=== PATIENT | female | born 1950 | race Caucasian/White ===

== ENCOUNTER 2019-07-29 11:03 | Emergency (ER) | payer MEDICARE, OTHER ==
[2019-07-29] MEDS ORDERED: IPRATROPIUM/ALBUTEROL 3 ML NEB INH STA (12:44)
[2019-07-29] MEDS ORDERED: DEXAMETHASONE 10 MG/ML VIAL PO STA (12:44)
[2019-07-29] MEDS ORDERED: CHERRY SYRUP 10 ML UDC PO ONE (12:44)
--- NOTE | 2019-07-29 12:49 | ED Physician Documentation ---
PD HPI DYSPNEA - Stated complaint Stated Complaint: SOA/COUGH - Chief complaint Chief Complaint: Resp - History obtained from History obtained from: Patient, Friend - History of Present Illness Timing - onset: How many weeks ago (2) Timing - onset during: Rest Timing - duration: Weeks (2) Timing - details: Gradual onset Pain level max: 0 Pain level now: 0 Inciting event(s): URI Improved by: Inhaler/neb Worsened by: Exertion, Coughing Associated symptoms: Wheezing. No: Fever, Cough, Hemoptysis, Chest pain / discomfort, Palpitations, Diaphoresis, Bilateral edema, Unilateral edema, Anxiety Similar symptoms before: Diagnosis (asthma, URI) Recently seen: Not recently seen Review of Systems Ten Systems: 10 systems reviewed and negative Constitutional: denies: Fever, Chills Ears: denies: Ear pain Nose: reports: Rhinorrhea / runny nose, Congestion Throat: denies: Sore throat Cardiac: denies: Chest pain / pressure Respiratory: reports: Cough, Wheezing. denies: Dyspnea, Hemoptysis GI: denies: Abdominal Pain, Nausea, Vomiting, Diarrhea Skin: denies: Rash Musculoskeletal: denies: Neck pain, Back pain Neurologic: denies: Headache PD PAST MEDICAL HISTORY - Past Medical History Past Medical History: Yes Cardiovascular: High cholesterol Respiratory: Asthma Psych: Depression - Past Surgical History HEENT: Cataracts - Present Medications Home Medications: Ambulatory Orders Medication Instructions Recorded Confirmed Albuterol Sulf [Ventolin Hfa 1 - 2 puffs INH Q4HR PRN #1 inhaler 07/29/19 Inhaler] Benzonatate [Tessalon Perle] 100 - 200 mg PO TID PRN #30 capsule 07/29/19 Cephalexin [Keflex] 500 mg PO TID 07/29/19 07/29/19 Escitalopram Oxalate [Lexapro] 20 mg PO DAILY 07/29/19 07/29/19 Guaifen/Dextromethorphan/PE 180 ml PO PRN PRN 07/29/19 07/29/19 [Mucinex Fast-Max Congest-Cough] Lorazepam [Ativan] 1 mg PO DAILY PM 07/29/19 07/29/19 Meclizine HCl [Travel-Ease] 25 mg PO PRN PRN 07/29/19 07/29/19 Vit A/Vit C/Vit E/Zinc/Copper 1 each PO DAILY 07/29/19 07/29/19 [Preservision Areds Softgel] predniSONE [Deltasone] 10 mg PO [id number] #42 tab 07/29/19 predniSONE [Prednisone] 10 mg PO BID 07/29/19 07/29/19 - Allergies Allergies/Adverse Reactions: Allergies Allergy/AdvReac Type Severity Reaction Status Date / Time codeine AdvReac Itching Verified 07/29/19 11:09 - Social History Does the pt smoke?: Yes Smoking Status: Current every day smoker Does the pt drink ETOH?: No Does the pt have substance abuse?: No - Immunizations Immunizations: TDAP >10years/unknown PD ED PE NORMAL - Vitals Vital signs reviewed: Yes - General General: Alert and oriented X 3, No acute distress, Well developed/nourished - HEENT HEENT: PERRL, Ears normal, Moist mucous membranes, Pharynx benign - Neck Neck: Supple, no meningeal sign - Cardiac Cardiac: RRR, Strong equal pulses - Respiratory Respiratory: No respiratory distress, Other (diffuse wheezing B) - Abdomen Abdomen: Soft, Non tender, Non distended - Derm Derm: Warm and dry, No rash - Extremities Extremities: No edema - Neuro Neuro: Alert and oriented X 3 - Psych Psych: Normal mood, Normal affect Results - Vitals Vitals: Vital Signs - 24 hr 07/29/19 07/29/19 07/29/19 11:06 12:58 13:24 Temperature 35.6 C L Heart Rate 89 74 77 Respiratory 22 17 22 Rate Blood Pressure 155/58 H 126/74 O2 Saturation 94 91 L Oxygen O2 Source Room air - Rads (name of study) cxr Radiology: Prelim report reviewed, EMP read contemporaneously, See rad report (Chronic appearing interstitial irregularities. Active atypical interstitial pneumonitis not entirely excluded but thought less likely. ) PD MEDICAL DECISION MAKING - ED course Complexity details: reviewed results, re-evaluated patient, considered differential, d/w patient ED course: 68-year-old female presents to the emergency department difficulty breathing. Appears to be a COPD exacerbation. Given steroids and nebulizer treatment. Feels much better. No pneumonia. No hypoxia. No respiratory distress. Her inhaler is . Will prescribe a new inhaler for her. Also given a spacer and teaching. No evidence of pneumonia on chest x-ray. Will stop the Keflex. Patient counseled regarding signs and symptoms for which I believe and urgent re-evaluation would be necessary. Patient with good understanding of and agreement to plan and is comfortable going home at this time This document was made in part using voice recognition software. While efforts are made to proofread this document, sound alike and grammatical errors may occur. Departure - Departure Disposition: Home, Self Care Clinical Impression: Upper respiratory tract infection Qualifiers: URI type: unspecified viral URI Qualified Code(s): J06.9 - Acute upper respiratory infection, unspecified Asthma Qualifiers: Asthma severity: unspecified severity Asthma persistence: unspecified Asthma complication type: with acute exacerbation Qualified Code(s): J45.901 - Unspecified asthma with (acute) exacerbation Condition: Good Instructions: ED Reactive Airway Disease, ED URI Viral W Wheezing Follow-Up: your,doctor in 1 week [Other] Prescriptions: Albuterol Sulf [Ventolin Hfa Inhaler] 1 - 2 puffs INH Q4HR PRN #1 inhaler PRN Reason: Shortness Of Air/Wheezing Benzonatate [Tessalon Perle] 100 - 200 mg PO TID PRN #30 capsule PRN Reason: Cough predniSONE [Deltasone] 10 mg PO [id number] #42 tab Comments: Use the medications as prescribed. Return if you worsen. Follow-up with your doctor for further care. You can stop the keflex as well. Discharge Date/Time: 07/29/19 13:56
--- NOTE | 2019-07-29 13:17 | XRAY Report ---
Reason: cough/congestion Procedure Date: 07/29/2019 Accession Number: [id number] / [id number] Procedure: XR - Chest 2 View X-Ray CPT Code: 28181 FULL RESULT: EXAM: CHEST RADIOGRAPHY EXAM DATE: 07/29/2019 12:50 PM HISTORY: Cough and dyspnea for 1 week COMPARISON: None. TECHNIQUE: Two Views FINDINGS: Lungs/Pleura: There is some mild diffuse interstitial irregularity with an appearance suggesting mild chronic interstitial disease. Active atypical pneumonia cannot be excluded. Question of mild upper lobe hyperlucency from emphysema. Clinically correlate. No apparent segmental infiltrate. No pleural effusion. Cardiomediastinal silhouette: Unremarkable accounting for technique. Other: There is some limitation because of rim calcified breast implants. IMPRESSION: Chronic appearing interstitial irregularities. Active atypical interstitial pneumonitis not entirely excluded but thought less likely. [facility]
[2019-07-29 13:25] VITALS: BP 126/74
== END 2019-07-29 13:56 | disposition home or self-care (01) ==
LOC: ED 11:03
DX: J45.901 Unspecified asthma with (acute) exacerbation (principal); J06.9 Acute upper respiratory infection, unspecified; I49.1 Atrial premature depolarization; F17.200 Nicotine dependence, unspecified, uncomplicated
CPT/HCPCS: 71046; 93005; 94640; 94664; 99284; A9270